=== PATIENT | female | born 1990 | race Caucasian/White ===

== ENCOUNTER 2017-03-03 06:46 | Emergency (ER) | payer MEDICAID ==
[2017-03-03 06:57] VITALS: BP 114/77
== END 2017-03-03 07:42 | disposition home or self-care (01) ==
LOC: ED 06:46
DX: H61.21 Impacted cerumen, right ear (principal); H92.02 Otalgia, left ear

== ENCOUNTER 2020-03-08 14:30 | Emergency (ER) | payer OTHER, SELFPAY ==
[~2020-03-08] VITALS: Ht 162.6 cm; Wt 90.7 kg
[2020-03-08 14:31] VITALS: BP 111/76
== END 2020-03-08 16:02 | disposition home or self-care (01) ==
LOC: ED 14:30
DX: U07.1 COVID-19 (principal); B34.9 Viral infection, unspecified
CPT/HCPCS: U0003

== ENCOUNTER 2020-03-15 14:00 | Emergency (ER) | payer OTHER, SELFPAY ==
[~2020-03-15] VITALS: Ht 162.6 cm; Wt 88.5 kg
[2020-03-15 14:08] VITALS: BP 119/80; Ht 162.6 cm; Wt 88.5 kg
== END 2020-03-15 15:27 | disposition home or self-care (01) ==
LOC: ED 14:00
DX: R05 Cough (principal); R06.02 Shortness of breath; Z20.828 Contact with and (suspected) exposure to other viral communicable diseases
CPT/HCPCS: U0003